=== PATIENT | male | born 1965 | race Caucasian/White ===

== ENCOUNTER 2016-04-15 10:52 | Emergency (ER) | payer OTHER ==
[~2016-04-15] VITALS: Ht 172.7 cm; Wt 80.7 kg
[~2016-04-15 10:52] MED LIST: A/B OTIC 54 MG/15 ML OT; ATIVAN1 MG PO; ESCITALOPRAM20 MG PO; FLEXERIL10 MG PO; GABAPENTIN400 MG PO; KLONOPIN 1MG TAB1 MG PO; MEDROL DOSEPAK1 PAC PO; METHADONE H5 MG/5 ML PO; MOBIC15 M1 PO; PERCOCET 5-3251 EACH PO
--- NOTE | 2016-04-15 12:11 | ED THROAT/DENTAL COMPLAINT ---
History of Present Illness General Chief Complaint: Sore Throat, Dental Pain Stated Complaint: "IRRITATION IN THROAT/ R EAR CLOGGED" Source: patient Exam Limitations: no limitations Vital Signs & Intake/Output Vital Signs & Intake/Output Vital Signs Date Time Temp Pulse Resp B/P Pulse O2 O2 Flow FiO2 Ox Delivery Rate 04/15 1100 97.6 91 20 130/81 97 Room Air Allergies Coded Allergies: NO KNOWN ALLERGIES (03/06/15) Reconcile Medications Cyclobenzaprine HCl 10 MG TABLET 1 TAB PO TID PRN SPASM Escitalopram Oxalate 20 MG TABLET 1 TAB PO DAILY MENTAL HEALTH (Reported) Gabapentin 400 MG CAPSULE 1 CAP PO DAILY HEAD INJURY (Reported) Gabapentin 400 MG CAPSULE 2 CAP PO QPM HEAD INJURY (Reported) METHADONE HCL (Methadone HCl) 5 MG/5 ML SOLUTION 60 MG PO DAILY ADDICTION ( Reported) Methylprednisolone. (Medrol) 4 MG TAB.DS.PK 1 DP PO AD INFLAMMATION 6 on day 1 then reduce by one tablet daily until gone Oxycodone HCl/Acetaminophen (Percocet 5-325 MG Tablet) 5 MG-325 MG TABLET 1 TAB PO Q4-6 PRN PAIN Triage Note: PT TO ED C/O R EAR CLOGGED WITH EAR WAX, TRIED WARM WATER AT HOME WITH NO RELIEF. PT ALSO C/O IRRITATION IN MOUTH, DRY MOUTH. Triage Nurses Notes Reviewed? yes Onset: Gradual Duration: worse persistent since (FEW DAYS) Timing: recent history Injury Environment: home Severity: moderate No Modifying Factors: none Associated Symptoms: RIGHT EAR PAIN, HEARING LOSS HPI: This is a 50 year old male who presents to the ER for chief complaint of on/off gum issues to the ER. History of possible gingivitis. He presents to the ED for chief complaint of a metal taste x 1 year, halitosis, some pharyngeal pain. No odynophagia, able to tolerate foods. Patient's current complaint is that he cannot hear out of his right ear and that it feels clogged. He is tried to use some peroxide at home and was unable to get any relief. Past History Travel History Traveled to [place] past 21 day No Medical History Any Pertinent Medical History? 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 No Review of Systems Review of Systems Constitutional: Denies: chills, fever. EENTM: Reports: ear discharge, ear pain. Respiratory: Denies: cough, short of breath. Cardiovascular: Denies: chest pain, palpitations, peripheral edema. GI: Denies: abdominal pain. Genitourinary: Denies: discharge, dysuria. Musculoskeletal: Reports: no symptoms. Skin: Reports: no symptoms. Neurological/Psychological: Reports: anxiety. Hematologic/Endocrine: Denies: bruising, bleeding, polyuria, polydipsia. Immunologic/Allergic: Denies: splenectomy. All Other Systems: Reviewed and Negative Physical Exam Physical Exam General Appearance: well developed/nourished, alert, awake, anxious, mild distress Head: atraumatic, normal appearance, active bleeding Eyes: Bilateral: normal appearance, PERRL, EOMI. Ears: Right: discharge, swelling, tenderness. Nose: normal inspection Mouth/Throat: normal mouth inspection Neck: normal inspection, supple, full range of motion Cardiovascular/Respiratory: normal breath sounds, normal peripheral pulses, regular rate/rhythm Neurologic/Psych: no motor/sensory deficits, awake, alert, oriented x 3, ANXIOUS Skin: intact Core Measures ACS in differential dx? No Severe Sepsis Present: No Septic Shock Present: No Progress Differential Diagnosis: OTITIS EXTERNA, OTITIS MEDIA, ANXIETY, GINGITIVITS Plan of Care: RIGHT EAR DISIMPACTED WITH PEROXIDE PATIENT FEELING MUCH BETTER AFTER DISIMPACTION, NOW HEARING WELL. Departure Departure Time of Disposition: 1308 Disposition: HOME OR SELF CARE Condition: Stable Clinical Impression Primary Impression: Cerumen impaction Referrals: MATT CHERY DO (PCP/Family) HI GONZALES,ELIAS Shaw Additional Instructions: Follow-up with your ear nose and throat doctor or the one listed here. Return as needed. Departure Forms: Customer Survey General Discharge Information
[2016-04-15 13:24] VITALS: BP 140/91
== END 2016-04-15 13:26 ==
LOC: ERH 10:52
DX: H61.21 Impacted cerumen, right ear (principal)

== ENCOUNTER 2016-04-18 12:46 | Emergency (ER) | payer OTHER ==
[2016-04-18 13:06] VITALS: BP 145/91
--- NOTE | 2016-04-18 14:19 | ED NECK/BACK PAIN COMPLAINT ---
History of Present Illness General Chief Complaint: Neck/Upper Back Pain/Injury Stated Complaint: LEFT SHOULDER AND ARM AND NECK PAIN Source: patient, old records Exam Limitations: no limitations Vital Signs & Intake/Output Vital Signs & Intake/Output Vital Signs Date Time Temp Pulse Resp B/P Pulse O2 O2 Flow FiO2 Ox Delivery Rate 04/18 1306 98.0 82 20 145/91 99 Room Air Allergies Coded Allergies: NO KNOWN ALLERGIES (03/06/15) Reconcile Medications Cyclobenzaprine HCl 10 MG TABLET 1 TAB PO TID PRN SPASM Escitalopram Oxalate 20 MG TABLET 1 TAB PO DAILY MENTAL HEALTH (Reported) Gabapentin 400 MG CAPSULE 1 CAP PO DAILY HEAD INJURY (Reported) Gabapentin 400 MG CAPSULE 2 CAP PO QPM HEAD INJURY (Reported) METHADONE HCL (Methadone HCl) 5 MG/5 ML SOLUTION 60 MG PO DAILY ADDICTION ( Reported) Methylprednisolone. (Medrol) 4 MG TAB.DS.PK 1 DP PO AD INFLAMMATION 6 on day 1 then reduce by one tablet daily until gone Oxycodone HCl/Acetaminophen (Percocet 5-325 MG Tablet) 5 MG-325 MG TABLET 1 TAB PO Q4-6 PRN PAIN Triage Note: PT PRESENTS TO ER C/O OF NECK PAIN. PT STATES HE HAS NECK ISSUES AND WAS GETTING THERAPY TO HIS NECK WHICH STOPPED. PT STATES HE HAS BEEN TAKING IBUPROFEN MD ORDERED WITH NO RELIEF Triage Nurses Notes Reviewed? yes Onset: Abrupt Duration: day(s): (4) Timing: recent history Quality/Severity: burning Location: C-spine Radiation: LEFT ARM Context: H/O HERNIATED DISK Modifying Factors: movement, pain medication Associated Symptoms: muscle spasm HPI: This is a 50-year-old male presents to the ER with chief complaint of neck pain radiating to his left shoulder and hand for the last 4 days. History of herniated disc in his neck for which she has received physical therapy in the past. Denies any recent trauma or injury. He states the pain feels the same. He went to his doctor who put him on naproxen instead of Motrin which is not helping. He has been taking both of them at home. He states it is difficult time sleeping. Denies any fever, cough, or blurred vision. Denies any new associated symptoms or pain. Pain is worse with range of motion of the neck and certain movements. He states he feels spasms. He is due to see his doctor in a few days. Past History Travel History Traveled to [place] past 21 day No Medical History Any Pertinent Medical History? 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 No Review of Systems Review of Systems Constitutional: Denies: chills, fever. Eyes: Reports: no symptoms. Ears, Nose, Throat, Mouth: Reports: no symptoms. Respiratory: Denies: cough, short of breath. Cardiovascular: Denies: chest pain. Gastrointestinal/Abdominal: Denies: abdominal pain. Musculoskeletal: Reports: muscle pain, muscle stiffness, neck pain. Skin: Reports: no symptoms. Neurological/Psychological: Reports: numbness. Denies: weakness. All Other Systems: Reviewed and Negative Physical Exam Physical Exam General Appearance: well developed/nourished, alert, awake, mild distress Head: atraumatic Eyes: Bilateral: PERRL, EOMI. 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 WILL FOLLOW UP WITH PCP FOR PT/PAIN CONTROL. Departure Departure Time of Disposition: 1424 Disposition: HOME OR SELF CARE Condition: Stable Clinical Impression Primary Impression: Cervical radiculopathy at C5 Referrals: MATT CHERY DO (PCP/Family) Additional Instructions: Taking Medrol Dosepak, Flexeril and Percocet as directed. Prescriptions are at [facility] in [place]. Follow-up with her doctor in the office. Return to ER for any changing or worsening symptoms. Departure Forms: Customer Survey General Discharge Information Prescriptions: Current Visit Scripts Methylprednisolone. (Medrol) 1 DP PO AD #1 DP 6 on day 1 then reduce by one tablet daily until gone Cyclobenzaprine HCl 1 TAB PO TID PRN SPASM #30 TAB Oxycodone HCl/Acetaminophen (Percocet 5-325 MG Tablet) 1 TAB PO Q4-6 PRN PAIN #10 TAB
[2016-04-18] MEDS ORDERED: CYCLOBENZAPRINE10 M1 PO (14:26)
[2016-04-18] MEDS ORDERED: PERCOCET 5-3251 EACH PO (14:26)
[2016-04-18] MEDS ORDERED: MEDROL4 M2 PO (14:26)
== END 2016-04-18 14:30 ==
LOC: ERH 12:46
DX: M54.12 Radiculopathy, cervical region (principal); R03.0 Elevated blood-pressure reading, without diagnosis of hypertension; K14.9 Disease of tongue, unspecified
CPT/HCPCS: 36415; 82570; 93005; 93010